=== PATIENT | female | born 1965 | race Caucasian/White ===

== ENCOUNTER → 2016-10-31 | Outpatient (CLI) | payer BC, MEDICARE ==
[~2016-10-31] MED LIST: AMLO5TAB2 PO; CALCIUM PO; DOCU240C31 PO; IBUP-1222 PO; IRON PO; LEVO125T5 PO; LOSA1TAB18 PO; OXYC-302 PO; SIMV20TA3 PO
== END | disposition home or self-care (01) ==
LOC: CFH 09:46
PROVIDERS: ATTEND Family Medicine
DX: D35.01 Benign neoplasm of right adrenal gland (principal); K43.9 Ventral hernia without obstruction or gangrene; K42.9 Umbilical hernia without obstruction or gangrene; N31.2 Flaccid neuropathic bladder, not elsewhere classified; N20.1 Calculus of ureter; Z90.49 Acquired absence of other specified parts of digestive tract
CPT/HCPCS: 74176

== ENCOUNTER → 2018-02-08 | Outpatient (CLI) | payer BC, MEDICARE ==
[~2018-02-08] MED LIST changes: -LOSA1TAB18 PO; +LOSA1TAB25 PO; +OMNIPAQUE 350 MG/ML, 100ML BOTTLE ONE
== END | disposition home or self-care (01) ==
LOC: CFH 11:45
PROVIDERS: ATTEND Family Medicine
DX: D35.01 Benign neoplasm of right adrenal gland (principal); E27.8 Other specified disorders of adrenal gland; K43.9 Ventral hernia without obstruction or gangrene
CPT/HCPCS: 74160; Q9967

== ENCOUNTER → 2018-09-02 | Outpatient (CLI) | payer BC, MEDICARE ==
[~2018-09-02] MED LIST changes: +AMLO-150 PO; -AMLO5TAB2 PO; +CALC0.5C9 PO; +LEVO88TA4 PO; -OMNIPAQUE 350 MG/ML, 100ML BOTTLE ONE; +POTA20PA25 PO
== END | disposition home or self-care (01) ==
LOC: CFH 09:14
PROVIDERS: ATTEND Nurse Practitioner
DX: N95.8 Other specified menopausal and perimenopausal disorders (principal)
CPT/HCPCS: 77080

== ENCOUNTER 2018-09-11 10:36 | Day surgery (SDC) | payer BC, MEDICARE ==
[~2018-09-11] VITALS: Ht 154.9 cm; Wt 108.0 kg
[~2018-09-11 10:36] MED LIST changes: +BUPIVACAINE/PF-EPI 0.5% 1:200K ONE
[2018-09-11] MEDS ORDERED: LACTATED RINGERS 1,000 ML IV SCH (10:54)
[2018-09-11] MEDS ORDERED: ACETAMINOPHEN 500 MG TABLET PO ONE (11:00)
[2018-09-11] MEDS ORDERED: GABAPENTIN 300 MG CAPSULE PO ONE (11:00)
[2018-09-11] MEDS ORDERED: SCOPOLAMINE PATCH, 1.5MG PATCH.TD72 TD ONE (11:00)
[2018-09-11 11:14] VITALS: BP 162/77
[2018-09-11] MEDS ORDERED: NEOSTIGMINE 1 MG/ML, 10ML ONE (11:45)
[2018-09-11] MEDS ORDERED: hydrALAzine 20 MG/ML, 1ML ONE (11:45)
[2018-09-11] MEDS ORDERED: SUCCINYLCHOLINE 20 MG/ML, 10ML ONE (11:45)
[2018-09-11] MEDS ORDERED: CEFOTETAN 2 GM ONE (11:45)
[2018-09-11] MEDS ORDERED: GLYCOPYRROLATE 0.2MG/1ML, 5ML ONE (11:45)
[2018-09-11] MEDS ORDERED: MIDAZOLAM 1 MG/ML, 2ML ONE (12:02)
[2018-09-11] MEDS ORDERED: FENTANYL PF 250 MCG/5ML ONE (12:02)
[2018-09-11] MEDS ORDERED: ROCURONIUM 10MG/ML,5ML ONE ×2 (12:03→12:09)
[2018-09-11] MEDS ORDERED: ONDANSETRON 2MG/ML, 2ML ONE (12:09)
[2018-09-11] MEDS ORDERED: DEXAMETHASONE 4 MG/ML, 5ML ONE (12:09)
[2018-09-11] MEDS ORDERED: PROPOFOL 10 MG/ML, 20ML ONE (12:09)
[2018-09-11] MEDS ORDERED: RACEPINEPHRINE INH 2.25%, 0.5ML NPPB PRN (13:30)
[2018-09-11] MEDS ORDERED: MEPERIDINE/PF 25MG/0.5ML IVPush PRN (13:30)
[2018-09-11] MEDS ORDERED: hydrALAzine 20 MG/ML, 1ML IV PRN (13:30)
[2018-09-11] MEDS ORDERED: HALOPERIDOL 5 MG/ML IV PRN (13:30)
[2018-09-11] MEDS ORDERED: LORazepam 2 MG/ML, 1ML IVPush PRN (13:30)
[2018-09-11] MEDS ORDERED: OXYcodone 5 MG/5 ML ORAL.SOL UDC PO PRN ×2 (13:30→14:00)
[2018-09-11] MEDS ORDERED: PROMETHAZINE 25 MG/ML, 1ML IV PRN (13:30)
[2018-09-11] MEDS ORDERED: HYDROmorphone 2 MG/ML, 1ML IVPush PRN ×2 (13:30→14:00)
[2018-09-11] MEDS ORDERED: FENTANYL PF 100 MCG/2ML IV PRN (13:30)
[2018-09-11] MEDS ORDERED: SUGAMMADEX 200 MG/2 ML IVPush ONE (13:58)
[2018-09-11] MEDS ORDERED: DIPHENHYDRAMINE 50 MG/ML, 1ML IVPush PRN (14:00)
[2018-09-11] MEDS ORDERED: HALOPERIDOL 5 MG/ML ONE (14:20)
[2018-09-11] MEDS ORDERED: FENTANYL PF 100 MCG/2ML ONE (14:20)
[2018-09-11] MEDS ORDERED: MEPERIDINE/PF 25MG/ML,1ML ONE (15:02)
[2018-09-11] MEDS ORDERED: OXYcodone 5 MG/5 ML ORAL.SOL UDC ONE (15:33)
== END 2018-09-11 18:55 | disposition home or self-care (01) ==
LOC: OUT 10:36
PROVIDERS: ATTEND Surgery
DX: K43.0 Incisional hernia with obstruction, without gangrene (principal); I10 Essential (primary) hypertension; E89.0 Postprocedural hypothyroidism; Z88.6 Allergy status to analgesic agent; Z87.39 Personal history of other diseases of the musculoskeletal system and connective tissue; Z87.891 Personal history of nicotine dependence; Z98.890 Other specified postprocedural states
CPT/HCPCS: 49655; C1781; J0330; J0360; J1100; J1630; J2175; J2250; J2405; J2704; J2710; J3010; J3490; J7120; S2900

== ENCOUNTER 2019-07-03 17:28 | Emergency (ER) | payer BC, MEDICARE ==
[~2019-07-03] VITALS: Ht 154.9 cm; Wt 118.0 kg
[~2019-07-03 17:28] MED LIST changes: -BUPIVACAINE/PF-EPI 0.5% 1:200K ONE
--- NOTE | 2019-07-03 20:18 | NUR ---
URINE SAMPLE SENT
[2019-07-03] MEDS ORDERED: DIAZEPAM 5 MG/ML, 2ML IVPush ONE ×2 (20:30→21:06)
[2019-07-03] MEDS ORDERED: ONDANSETRON 2MG/ML, 2ML IVPush ONE (20:30)
[2019-07-03] MEDS ORDERED: SODIUM CHLORIDE FLUSH 10ML SYR IVF ONE ×2 (20:30→21:30)
[2019-07-03 20:43] LABS: MICROSCOPIC AUTO
[2019-07-03 20:44] LABS: BASOPHILS # (AUTO) 0.03 x10^3/uL (0-0.1); BASOPHILS % (AUTO) 0 % (0-1); EOSINOPHILS # (AUTO) 0.11 x10^3/uL (0-0.4); EOSINOPHILS % (AUTO) 1 % (1-7); LYMPHOCYTES # (AUTO) 2.77 x10^3/uL (1-3.4); LYMPHOCYTES % (AUTO) 21 % (22-44); MD NO; MEAN CORPUSCULAR VOLUME 96.9 fL (80-100); MEAN PLATELET VOLUME 7.8 fL (7.4-10.4); MONOCYTES % (AUTO) 6 % (2-9); NEUTROPHILS % (AUTO) 72 % (42-75); PLATELET COUNT 329 x10^3/uL (130-400); RED BLOOD COUNT 4.65 x10^6/uL (3.82-5.3); RED CELL DISTRIBUTION WIDTH 14.7 % (9.6-15.2)
[2019-07-03 20:48] LABS: CULTURE INDICATED? YES
[2019-07-03 20:55] LABS: ANION GAP 6 mmol/L (5-15); CALCIUM 7.6 mg/dL (8.5-10.1); CHLORIDE 105 mmol/L (98-107); CREATININE 1.16 mg/dL (0.55-1.02)
[2019-07-03 20:56] LABS: ALANINE AMINOTRANSFERASE 21 U/L (12-78); ALBUMIN 3.5 g/dL (3.4-5.0)
[2019-07-03 21:00] LABS: ALKALINE PHOSPHATASE 73 U/L (45-117); BILIRUBIN,TOTAL 0.5 mg/dL (0.2-1.0); TOTAL PROTEIN 7.6 g/dL (6.4-8.2)
[2019-07-03] MEDS ORDERED: CEFTRIAXONE PMX 1GM/50ML 50 ML IV ONE (22:30)
[2019-07-03] MEDS ORDERED: KETOROLAC 30 MG/1 ML IVPush ONE (22:30)
[2019-07-03] MEDS ORDERED: ONDANSETRON 2MG/ML, 2ML ONE (22:39)
[2019-07-03] MEDS ORDERED: KETOROLAC 30 MG/1 ML ONE (22:39)
[2019-07-03] MEDS ORDERED: DIAZEPAM 5 MG/ML, 2ML ONE (22:40)
[2019-07-03] MEDS ORDERED: CEFTRIAXONE PMX 1GM/50ML 50 ML ONE (22:41)
--- NOTE | 2019-07-03 22:43 | NUR ---
RN to bedside, patient in [facility], at bedside. Patient reporting continued back discomfort. RN to bedside to inform of orders placed. Agreeable to medications requiring IV. IV placed per protocol. RN then collected medications. On return, patient already transported to CT. Awaiting return, will medicate. Awaiting CTA results.
[2019-07-03] MEDS ORDERED: OMNIPAQUE 350 MG/ML, 100ML BOTTLE ONE (22:53)
--- NOTE | 2019-07-03 23:18 | NUR ---
Patient back from CT. medications given (see electronic medical administration record) Patient resting comfortably now.
[2019-07-03 23:26] VITALS: BP 118/67
== END 2019-07-03 23:32 | disposition home or self-care (01) ==
LOC: ED 23:26
DX: S29.012A Strain of muscle and tendon of back wall of thorax, initial encounter (principal); N10 Acute pyelonephritis; I10 Essential (primary) hypertension; Z90.710 Acquired absence of both cervix and uterus; X58.XXXA Exposure to other specified factors, initial encounter; Y93.89 Activity, other specified; Y92.89 Other specified places as the place of occurrence of the external cause; Y99.8 Other external cause status
CPT/HCPCS: 36415; 71275; 74176; 80053; 81001; 84703; 85025; 85379; 87086; 93005; 96374; 96375; 99284; J1885; J2405; J3360; Q9967

== ENCOUNTER 2020-06-09 05:28 | Day surgery (SDC) | payer BC, MEDICARE ==
[~2020-06-09] VITALS: Ht 154.9 cm; Wt 118.0 kg
[~2020-06-09 05:28] MED LIST changes: +LEVO100T5 PO; +OMEP40CA42 PO; +SIMV20TA19 PO; -SIMV20TA3 PO
[2020-06-09] MEDS ORDERED: CHLORHEXIDINE 15 ML UDC MM ONE (07:00)
[2020-06-09] MEDS ORDERED: LACTATED RINGERS 1,000 ML IV SCH (07:00)
[2020-06-09] MEDS ORDERED: LIDOCAINE-MPF 1%, 2ML INFIL ONE (07:00)
[2020-06-09 07:01] VITALS: BP 150/89
[2020-06-09] MEDS ORDERED: PROPOFOL 50 ML ONE (07:42)
[2020-06-09] MEDS ORDERED: FENTANYL PF 100 MCG/2ML IV PRN (08:00)
[2020-06-09] MEDS ORDERED: DIPHENHYDRAMINE 50 MG/ML, 1ML IVPush PRN (08:00)
[2020-06-09] MEDS ORDERED: LABETALOL 5MG/ML, 20ML IV PRN (08:00)
[2020-06-09] MEDS ORDERED: MEPERIDINE/PF 25MG/0.5ML IVPush PRN (08:00)
[2020-06-09] MEDS ORDERED: DIAZEPAM 5 MG/ML, 2ML IVPush PRN (08:00)
[2020-06-09] MEDS ORDERED: ONDANSETRON 2MG/ML, 2ML IVPush PRN (08:00)
[2020-06-09] MEDS ORDERED: EPHEDRINE 50 MG/ML, 1ML IVPush PRN (08:00)
[2020-06-09] MEDS ORDERED: EPHEDRINE 50 MG/ML, 1ML IM PRN (08:00)
[2020-06-09] MEDS ORDERED: PROMETHAZINE 25 MG/ML, 1ML IVPush PRN (08:00)
== END 2020-06-09 09:30 | disposition home or self-care (01) ==
LOC: OUT 05:28
PROVIDERS: ATTEND Internal Medicine
DX: K59.00 Constipation, unspecified (principal); K22.2 Esophageal obstruction; K44.9 Diaphragmatic hernia without obstruction or gangrene; K22.10 Ulcer of esophagus without bleeding; K21.00 Gastro-esophageal reflux disease with esophagitis, without bleeding; D12.5 Benign neoplasm of sigmoid colon; E78.5 Hyperlipidemia, unspecified; I10 Essential (primary) hypertension; E03.9 Hypothyroidism, unspecified; E66.01 Morbid (severe) obesity due to excess calories; Z68.42 Body mass index [BMI] 45.0-49.9, adult; Z90.710 Acquired absence of both cervix and uterus; Z82.49 Family history of ischemic heart disease and other diseases of the circulatory system; Z98.890 Other specified postprocedural states; Z79.899 Other long term (current) drug therapy; Z90.49 Acquired absence of other specified parts of digestive tract
CPT/HCPCS: 43249; 45380; 88305; C1725; J2704; J7120

== ENCOUNTER → 2020-08-31 | Outpatient (CLI) | payer BC, MEDICARE ==
[~2020-08-31] MED LIST changes: -OXYC-302 PO; +OXYC1TAB14 PO
[2020-08-31 09:29] LABS: ALANINE AMINOTRANSFERASE 24 U/L (12-78); ALBUMIN 3.6 g/dL (3.4-5.0); ANION GAP 6 mmol/L (5-15); CALCIUM 8.9 mg/dL (8.5-10.1); CHLORIDE 108 mmol/L (98-107); CREATININE 1.14 mg/dL (0.55-1.02)
[2020-08-31 09:31] LABS: ALKALINE PHOSPHATASE 68 U/L (45-117); BILIRUBIN,TOTAL 0.6 mg/dL (0.2-1.0); TOTAL PROTEIN 7.4 g/dL (6.4-8.2)
== END | disposition home or self-care (01) ==
LOC: STAR 07:35
PROVIDERS: ATTEND Internal Medicine
DX: Z01.812 Encounter for preprocedural laboratory examination (principal); Z20.822 Contact with and (suspected) exposure to COVID-19
CPT/HCPCS: 80053; 87635

== ENCOUNTER 2020-09-06 05:42 | Day surgery (SDC) | payer BC, MEDICARE ==
[~2020-09-06] VITALS: Ht 154.9 cm; Wt 116.0 kg
[2020-09-06] MEDS ORDERED: CHLORHEXIDINE 15 ML UDC MM STA (06:04)
[2020-09-06] MEDS ORDERED: CHLORHEXIDINE 15 ML UDC ONE (06:08)
[2020-09-06 06:16] VITALS: BP 162/94
[2020-09-06] MEDS ORDERED: LACTATED RINGERS 1,000 ML IV SCH (06:30)
[2020-09-06] MEDS ORDERED: PROPOFOL 50 ML ONE (07:32)
[2020-09-06] MEDS ORDERED: PROMETHAZINE 25 MG SUPP PR PRN (08:00)
[2020-09-06] MEDS ORDERED: ACETAMINOPHEN 325 MG TABLET PO PRN (08:00)
[2020-09-06] MEDS ORDERED: FENTANYL PF 100 MCG/2ML IV PRN (08:00)
[2020-09-06] MEDS ORDERED: ONDANSETRON 2MG/ML, 2ML IVPush PRN (08:00)
[2020-09-06] MEDS ORDERED: PROMETHAZINE 25 MG/ML, 1ML IVPush PRN (08:00)
[2020-09-06] MEDS ORDERED: OXYcodone 5 MG/5 ML ORAL.SOL UDC PO PRN (08:00)
== END 2020-09-06 09:00 | disposition home or self-care (01) ==
LOC: OUT 05:42
PROVIDERS: ATTEND Internal Medicine
DX: K20.90 Esophagitis, unspecified without bleeding (principal); K29.50 Unspecified chronic gastritis without bleeding; K44.9 Diaphragmatic hernia without obstruction or gangrene; K21.9 Gastro-esophageal reflux disease without esophagitis; I10 Essential (primary) hypertension; E66.01 Morbid (severe) obesity due to excess calories; Z88.5 Allergy status to narcotic agent; Z98.84 Bariatric surgery status
CPT/HCPCS: 43239; 88305; J2704; J7120

== ENCOUNTER → 2020-11-12 | Outpatient (CLI) | payer BC, MEDICARE | END | disposition home or self-care (01) | LOC: CARD 08:29 | PROVIDERS: ATTEND Family Medicine | DX: R94.131 Abnormal electromyogram [EMG] (principal); G62.9 Polyneuropathy, unspecified | CPT/HCPCS: 95886; 95909 ==